=== PATIENT | female | born 1990 | race Caucasian/White ===

== ENCOUNTER 2020-07-13 20:44 | Emergency (ER) | payer MEDICAID ==
[~2020-07-13] VITALS: Ht 167.6 cm; Wt 59.0 kg
[2020-07-14] MEDS ORDERED: LORAZEPAM 1MG TABLET PO ONE ×2 (00:15→08:30)
[2020-07-14 00:46] LABS: *BARBITURATES SCREEN URINE NEGATIVE (NEGATIVE)
[2020-07-14 00:47] LABS: *BENZODIAZEPINES SCREEN URINE NEGATIVE (NEGATIVE); *COCAINE SCREEN URINE NEGATIVE (NEGATIVE); METHADONE URINE SCREEN NEGATIVE (NEGATIVE); OPIATES URINE SCREEN NEGATIVE (NEGATIVE); PHENCYCLIDINE URINE SCREEN NEGATIVE (NEGATIVE)
[2020-07-14 00:48] LABS: *AMPHETAMINES SCREEN URINE NEGATIVE (NEGATIVE)
[2020-07-14 01:07] LABS: CANNABINOID URINE SCREEN PRESUMTIVE POSITIVE (NEGATIVE)
[2020-07-14 02:27] LABS: BASOPHILS % 0.4 % (0.0-2.0); EOSINOPHILS % 0.3 % (0.0-5.0); HEMATOCRIT. 44.6 % (36.0-48.0); LYMPHOCYTES % 26.6 % (20.0-50.0); MEAN CORPUSCULAR HEMOGLOBIN 31.5 pg (28.0-32.0); MEAN CORPUSCULAR VOLUME 93.5 fL (81.0-99.0); MEAN PLATELET VOLUME 8.2 fl (7.4-10.4); MONOCYTES % 13.2 % (2.0-8.0); NEUTROPHILS % 59.5 % (40.0-76.0); PLATELET 366 x1000/uL (130-400); RED BLOOD CELL COUNT 4.77 mill/uL (4.2-5.4); RED CELL DISTRIBUTION WIDTH 13.8 % (11.6-14.6)
[2020-07-14 02:28] LABS: CHLORIDE 107 mEq/L (98-107)
[2020-07-14] MEDS ORDERED: LORAZEPAM 2MG/ML CPJ IV ONE (02:30)
[2020-07-14 02:33] LABS: ETHANOL BLOOD < 10 mg/dL
[2020-07-14 02:35] LABS: HCG SCREEN NEGATIVE
[2020-07-14 06:41] LABS: CLARITY URINE CLOUDY (CLEAR); COLOR URINE DK YELLOW (YELLOW); KETONES URINE 2+ (NEGATIVE); LEUKOCYTE ESTERASE URINE 1+ (NEGATIVE); NITRITE URINE NEGATIVE (NEGATIVE); OCCULT BLOOD URINE NEGATIVE (NEGATIVE); PROTEIN URINE 1+ (NEGATIVE); SPECIFIC GRAVITY URINE 1.031 (1.005-1.030)
[2020-07-14] MEDS: NITROFURANTOIN 100MG M/M CAPSULE PO SCH (09:00)
[2020-07-14] MEDS ORDERED: LORAZEPAM 2MG/ML CPJ IM STA (11:02)
[2020-07-14] MEDS ORDERED: DIPHENHYDRAMINE 50MG/ML VIAL IM STA (11:02)
[2020-07-14] MEDS ORDERED: OLANZAPINE 10 MG/VIAL IM ONE (11:15)
[2020-07-15] MEDS: NITROFURANTOIN 100MG M/M CAPSULE PO SCH ×3 (03:47→21:00)
[2020-07-15] MEDS ORDERED: LORAZEPAM 2MG/ML CPJ IV PRN (04:00)
[2020-07-15] MEDS ORDERED: DIPHENHYDRAMINE 50MG/ML VIAL IV PRN (04:00)
[2020-07-15] MEDS ORDERED: OLANZAPINE 10 MG/VIAL IM PRN (04:00)
[2020-07-16] MEDS: NITROFURANTOIN 100MG M/M CAPSULE PO SCH (09:00)
[2020-07-16 11:55] VITALS: BP 120/75
== END 2020-07-16 11:58 | disposition home or self-care (01) ==
LOC: ER 20:44 → EDBD 20:44 → ER 07-16 11:58
DX: F22 Delusional disorders (principal); F12.980 Cannabis use, unspecified with anxiety disorder; Z73.6 Limitation of activities due to disability; R45.1 Restlessness and agitation; D72.829 Elevated white blood cell count, unspecified
CPT/HCPCS: 81025; 93005; 96372; 96374; 99285; J1200; J2060; J3490

== ENCOUNTER 2025-01-14 12:51 | Emergency (ER) | payer MEDICAID, OTHER ==
[~2025-01-14] VITALS: Ht 172.7 cm; Wt 70.0 kg
[2025-01-14 12:54] VITALS: O2SAT 98
[2025-01-14 13:55] LABS: CHLORIDE 103 mEq/L (98-107); SODIUM 138 mEq/L (136-145)
[2025-01-14 13:56] LABS: CALCIUM 9.4 mg/dL (8.7-10.4); CARBON DIOXIDE 23 mEq/L (21-32)
[2025-01-14 13:57] LABS: BASOPHILS % 0.3 % (0.0-2.0); EOSINOPHILS % 0.1 % (0.0-5.0); HEMATOCRIT. 40.5 % (36.0-48.0); HEMOGLOBIN. 13.3 g/dL (12.0-16.0); LYMPHOCYTES % 9.6 % (20.0-50.0); MEAN CORPUSCULAR HEMOGLOBIN 29.9 pg (28.0-32.0); MEAN CORPUSCULAR VOLUME 90.7 fL (81.0-99.0); MEAN PLATELET VOLUME 9.4 fl (7.4-10.4); MONOCYTES % 7.7 % (2.0-8.0); NEUTROPHILS % 82.3 % (40.0-76.0); PLATELET 299 x1000/uL (130-400); RED BLOOD CELL COUNT 4.46 mill/uL (4.2-5.4); RED CELL DISTRIBUTION WIDTH 13.7 % (11.6-14.6); WHITE BLOOD COUNT 11.5 x1000/uL (4.5-11.0)
[2025-01-14] MEDS: LORAZEPAM 2MG/ML INJ IV STA (13:57)
[2025-01-14 14:01] LABS: GLUCOSE 120 mg/dL (70-105); UREA NITROGEN BLOOD 12 mg/dL (9-23)
[2025-01-14 14:33] LABS: ETHANOL BLOOD < 10 mg/dL (<10)
[2025-01-14] MEDS: LORAZEPAM 2MG/ML INJ IV ONE (14:52)
[2025-01-14 16:04] LABS: HCG SCREEN NEGATIVE
[2025-01-14 23:15] LABS: CLARITY URINE CLOUDY (CLEAR); COLOR URINE YELLOW (YELLOW); GLUCOSE URINE NEGATIVE (NEGATIVE); KETONES URINE 1+ (NEGATIVE); LEUKOCYTE ESTERASE URINE 2+ (NEGATIVE); NITRITE URINE NEGATIVE (NEGATIVE); OCCULT BLOOD URINE 1+ (NEGATIVE); PH URINE 5.5 (4.5-8.0); PROTEIN URINE TRACE (NEGATIVE)
[2025-01-14] MEDS: OLANZAPINE 10 MG/VIAL IM ONE (23:19)
[2025-01-14 23:28] LABS: *AMPHETAMINES SCREEN URINE NEGATIVE (NEGATIVE); *BARBITURATES SCREEN URINE NEGATIVE (NEGATIVE); *BENZODIAZEPINES SCREEN URINE NEGATIVE (NEGATIVE); *COCAINE SCREEN URINE NEGATIVE (NEGATIVE)
[2025-01-14 23:29] LABS: CANNABINOID URINE SCREEN NEGATIVE (NEGATIVE); ECSTASY MDMA SCREEN URINE NEGATIVE (NEGATIVE); METHADONE URINE SCREEN NEGATIVE (NEGATIVE); OPIATES URINE SCREEN NEGATIVE (NEGATIVE); PHENCYCLIDINE URINE SCREEN NEGATIVE (NEGATIVE)
[2025-01-14 23:58] LABS: SQUAMOUS EPITHELIAL CELL URINE 1+ /lpf (RARE/1+)
[2025-01-14 23:59] LABS: WBC URINE 15-25 /hpf (0-2)
[2025-01-15] LABS: BACTERIA URINE 2+; FINE GRANULAR CASTS URINE 0-5 /lpf
[2025-01-15 00:01] LABS: AMORPHOUS SEDIMENT URINE NONE SEEN /lpf
[2025-01-15] MEDS: POTASSIUM CHLORIDE 20MEQ/PACKET PO ONE (03:12)
[2025-01-15] MEDS: LIDOCAINE HCL 1% 20ML VIAL INFIL NR (05:45)
[2025-01-15] MEDS: AZITHROMYCIN 500 MG TABLET PO NR (05:45)
[2025-01-15] MEDS: CEFTRIAXONE SODIUM 500MG VIAL IM NR (05:45)
[2025-01-15 07:44] LABS: CHLORIDE 106 mEq/L (98-107); POTASSIUM 3.5 mEq/L (3.5-5.1); SODIUM 142 mEq/L (136-145)
[2025-01-15 07:45] LABS: CARBON DIOXIDE 23 mEq/L (21-32)
[2025-01-15 07:46] LABS: CALCIUM 8.4 mg/dL (8.7-10.4)
[2025-01-15 07:50] LABS: CREATININE 0.8 mg/dL (0.6-1.0); GLUCOSE 82 mg/dL (70-105)
[2025-01-15 07:59] LABS: UREA NITROGEN BLOOD < 5 mg/dL (9-23)
[2025-01-15 15:17] VITALS: BP 122/79; PULSE 91; RESP 18; TEMP 36.9; O2SAT 100
== END 2025-01-15 16:17 ==
LOC: ER 12:51
DX: R46.1 Bizarre personal appearance (principal); J45.909 Unspecified asthma, uncomplicated; Z79.899 Other long term (current) drug therapy; Z20.822 Contact with and (suspected) exposure to COVID-19
CPT/HCPCS: 80305; 80048 ×2; 81003; 80307; 80329; 80320; 84703; 85025; 87086; 87186; 87077; 36415 ×2; 96372 ×2; 96374; 99285; 87426; J3490 ×2; J2060; Z7610; J0696; G0480